=== PATIENT | male | born 1960 | race Hispanic/Latino ===

== ENCOUNTER 2019-01-14 13:21 | Emergency (ER) | payer SELFPAY ==
[~2019-01-14 13:21] MED LIST: ISOVUE-370 76%-LOCM 1 ML ONE
[2019-01-14] MEDS ORDERED: Acetaminophen 500 MG TAB ONE (13:44)
[2019-01-14 13:58] LABS: #Lymphocytes 1.7 thou/uL (1.20-3.40); #Monocytes 0.9 thou/uL (0.11-0.59); %Basophils 0.3 % (0.0-1.0); %Eosinophils 0.2 % (0.0-10.0); %Lymphocytes 11.8 % (21.0-51.0); %Monocytes 5.9 % (0.0-10.0); %Neutrophils 81.9 % (42.0-75.0); Hemoglobin 15.5 g/dL (14.0-18.0); Mean Corpuscular HGB CONC 32.6 g/dL (32.0-36.0); Mean Corpuscular Hemoglobin 27.7 pg (27.0-31.0); Mean Platelet Volume 8.9 fL (7.4-10.4); Platelet Count 192 thou/uL (130-400); RBC Distribution Width 12.9 % (11.5-14.5); White Blood Cell (WBC) Count 14.7 thou/uL (4.8-10.8)
[2019-01-14] MEDS ORDERED: Rocuronium Bromide 50 MG/5 ML VIAL ONE (14:24)
[2019-01-14 14:25] LABS: ALT (SGPT) 16 U/L (8-55); AST (SGOT) 22 U/L (5-34); Albumin 3.9 g/dL (3.5-5.0); Alkaline Phosphatase 132 U/L (40-150); Anion Gap 15 mmol/L (10-20); BUN (Urea Nitrogen) 23 mg/dL (8.4-25.7); Bilirubin, Total 1.3 mg/dL (0.2-1.2); Calc. Creatinine Clearance 0 mL/min (70-130); Calcium 9.6 mg/dL (7.8-10.44); Carbon Dioxide 23 mmol/L (22-29); Chloride 94 mmol/L (98-107); Estimated GFR-MDRD 39; Globulin 3.7 g/dL (2.4-3.5); Glucose 194 mg/dL (70-105); Potassium 3.9 mmol/L (3.5-5.1); Protein, Total 7.6 g/dL (6.0-8.3); Sodium 128 mmol/L (136-145)
[2019-01-14] MEDS ORDERED: Ketamine 50 MG/ML (10ML VIAL) ONE (14:25)
[2019-01-14 14:43] LABS: CKMB 3.6 ng/mL (0-6.6)
[2019-01-14] MEDS ORDERED: niCARdipine 20MG In NaCl 0 MG/0 ML BAG ONE (14:47)
[2019-01-14 14:57] LABS: INR-International Normal Ratio 1.1; PTT 29.9 SEC (22.9-36.1); Prothrombin Time 14.3 SEC (12.0-14.7)
[2019-01-14 15:25] LABS: Actual Bicarbonate (HCO3a) 26.3 mEq/L (22-28); Analyzer IN Cardio ER; Base Excess (BEa) -0.9 mEq/L (-2.0 to +3.0); Carboxyhemoglobin (COHb) 0.7 gm% (0.0-3.0); Hemoglobin (Hb) 17.9 g/dL (14.0-18.0); O2 Tension (PaO2) 229.9 mmHg (80.0-100.0); Potassium - ABG Lab 3.71 mmol/L (3.70-5.30); pH, Arterial 7.32 (7.35-7.45)
[2019-01-14 15:26] LABS: Puncture Site LRA
--- NOTE | 2019-01-14 15:31 | RAD ---
SINGLE VIEW OF THE CHEST: 01/14/19 COMPARISON: None. HISTORY: Hypertension and headache. FINDINGS: Single view of the chest shows an enlarged cardiomediastinal silhouette. Bilateral pulmonary vascular enlargement is seen. There is no evidence of consolidation, mass, or pleural effusion. IMPRESSION: No evidence of acute cardiopulmonary disease. POS: TPC
--- NOTE | 2019-01-14 15:41 | CT ---
CT BRAIN NONCONTRAST: DATE: 01/14/2019. TIME: 2:07 p.m. HISTORY: A 58-year-old male with posttraumatic headache. COMPARISON: None available. FINDINGS: There is an approximately 2 x 1 cm acute intraaxial hematoma near the junction between the right erica etal and temporal lobes. It is surrounded by low-attenuation rim that represents a mild degree of va sogenic edema. The differential diagnosis for the acute intraaxial hemorrhage includes hypertensive hemorrhage, neoplasm, and trauma. No mass effect, midline shift, or extraaxial fluid collection. No evidence of subarachnoid, subdural , or epidural hemorrhage. No obstructive hydrocephalus. There are diffuse, moderate to severe chronic ischemic white matter changes of the cerebrum bilateral ly. There are small old lacunar infarctions involving the periventricular white matter and caudate nuclei , at least 2 on the right and 1 on the left. No acute calvarial fracture. Dr. Wynn discussed the intracranial hemorrhage by [facility] 2:14 p.m. on 01/14/2019. IMPRESSION: 1. A 1 x 2 cm acute right parietotemporal intraaxial hematoma centered at the yeung-white junction. 2. 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 3. No mass effect. 4. Moderate to severe chronic ischemic white matter changes (small vessel disease). JN Shayne POS: CET
--- NOTE | 2019-01-14 15:59 | RAD ---
SINGLE VIEW CHEST: COMPARISON: 01/14/2019 at 2:01 p.m. HISTORY: Hypertension and headache. FINDINGS: A single view of the chest shows an enlarged but stable cardiomediastinal silhouette. An endotrachea l tube is seen with its tip between the clavicles. There is no evidence of consolidation, mass, or p leural effusion. IMPRESSION: Appropriate position of endotracheal tube. POS: TPC
--- NOTE | 2019-01-14 16:03 | CT ---
BRAIN CT WITHOUT IV CONTRAST: HISTORY: Headache, worsening mental status. COMPARISON: 01/14/2019, 2:05 p.m. study. FINDINGS: Stable right temporoparietal intracranial intracerebral hemorrhage. No evidence for new hemorrhage. This appears stable in size from the prior study. There is some fluid in the posterior nasopharynx and minimal mucosal changes in the right maxillary sinus. IMPRESSION: Stable intracerebral hemorrhage. Stable atrophy and chronic white matter ischemic change. No signif icant new process. POS: TPC
[2019-01-14 16:04] LABS: Bilirubin Negative (Negative); Blood, Urine 3+ (Negative); Clarity Clear (Clear); Glucose, Urine (Dipstick) 50 mg/dL (Negative); Leukocyte Negative Leu/uL (Negative); Nitrite Negative (Negative); Protein, Urine (Dipstick) 600 mg/dL (Neg-Trace); RBC/HPF 0-3 HPF (0-3); Squamous Epithelial None Seen HPF (0-3)
[2019-01-14] MEDS ORDERED: Propofol 1,000 MG/100 ML VIAL IV ONE (16:05)
[2019-01-14] MEDS ORDERED: niCARdipine 20MG In NaCl 20 MG/200 ML BAG ONE (16:16)
--- NOTE | 2019-01-14 16:16 | CT ---
CT ANGIOGRAM HEAD WITH 3D RENDERING: Date: 01/14/19 HISTORY: Headache, trauma, right intracerebral hemorrhage. FINDINGS: Stable right temporoparietal intra-axial intracerebral hemorrhage. No evidence for an aneurysm. No ev idence for an arteriovenous malformation. No overt major branch occlusion. There are some atheroscler otic calcific changes of the intracranial internal carotid arteries. Vertebrobasilar arteries are unr emarkable. IMPRESSION: Stable right temporoparietal intra-axial hemorrhage. No evidence of an aneurysm or arteriovenous malf ormation. No evidence of major branch occlusion. Fluid in the posterior nasopharynx region. Consider nonemergent follow-up MRI for further assessment. POS: TPC
[2019-01-14 16:31] LABS: Bacteria/HPF None Seen HPF (None Seen); Mucous/LPF None Seen LPF (<2+)
[2019-01-14 16:36] LABS: Actual Bicarbonate (HCO3a) 26.3 mEq/L (22-28); Base Excess (BEa) -0.9 mEq/L (-2.0 to +3.0); Hemoglobin (Hb) 17.9 g/dL (14.0-18.0); O2 Tension (PaO2) 229.9 mmHg (80.0-100.0); pH, Arterial 7.32 (7.35-7.45)
[2019-01-14 16:37] LABS: Carboxyhemoglobin (COHb) 0.7 gm% (0.0-3.0)
[2019-01-14 16:38] LABS: Analyzer IN Cardio ER; Potassium - ABG Lab 3.71 mmol/L (3.70-5.30); Puncture Site LRA
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
--- NOTE | 2019-01-15 17:01 | EKG ---
Test Reason : Blood Pressure : / mmHG Vent. Rate : 085 BPM Atrial Rate : 085 BPM P-R Int : 162 ms QRS Dur : 092 ms QT Int : 412 ms P-R-T Axes : 053 -38 165 degrees QTc Int : 490 ms Normal sinus rhythm Possible Left atrial enlargement Left axis deviation Left ventricular hypertrophy Cannot rule out Septal infarct , age undetermined Abnormal ECG Confirmed by ROGELIO PETERSEN, MEJIA ([id number]), editor sound JUDITH MCCORMACK ([id number]) on 01/15/2019 5:00:47 PM Referred By: Confirmed By:MEJIA MERCADO MD
== END 2019-01-14 16:12 | disposition short-term general hospital (02) ==
LOC: ERS 13:21
DX: I61.9 Nontraumatic intracerebral hemorrhage, unspecified (principal); I10 Essential (primary) hypertension; R41.82 Altered mental status, unspecified
CPT/HCPCS: 31500; 36415; 51702; 70450; 70496; 71045; 80053; 80307; 81003; 81015; 82553; 82805; 83880; 84484; 85025; 85610; 85730; 93005; 94002; 96365; 96374; J2704; Q9966

== ENCOUNTER 2020-04-26 14:11 | Inpatient (IN) | payer OTHER, SELFPAY ==
--- NOTE | 2020-04-26 14:54 | RAD ---
EXAM: 3 views of the right foot HISTORY: Foot pain and swelling since yesterday COMPARISON: None FINDINGS: 3 views of the right foot shows no evidence of acute fracture or dislocation. Moderate dors al soft tissue swelling is seen. Mild to moderate degenerative changes are seen in the midfoot. IMPRESSION: Midfoot degenerative changes without evidence of acute osseous abnormality.
[2020-04-26] MEDS ORDERED: Vancomycin 1 GM/200 ML BAG ONE (18:08)
[2020-04-26 18:18] LABS: #Basophils 0.1 thou/uL (0.0-0.2); #Eosinphils 0.2 thou/uL (0.0-0.7); #Lymphocytes 1.7 thou/uL (1.20-3.40); #Monocytes 1.2 thou/uL (0.11-0.59); #Neutrophils 10.8 thou/uL (1.40-6.50); %Basophils 0.4 % (0.0-1.0); %Eosinophils 1.3 % (0.0-10.0); %Lymphocytes 12.2 % (21.0-51.0); %Monocytes 8.3 % (0.0-10.0); %Neutrophils 77.7 % (42.0-75.0); Hemoglobin 16.9 g/dL (14.0-18.0); Mean Corpuscular Hemoglobin 28.6 pg (27.0-31.0); Mean Corpuscular Volume 86.7 fL (78.0-98.0); Mean Platelet Volume 10.2 fL (7.4-10.4); Platelet Count 171 thou/uL (130-400); RBC Distribution Width 12.7 % (11.5-14.5); Red Blood Cell (RBC) Count 5.91 mill/uL (4.70-6.10); White Blood Cell (WBC) Count 13.8 thou/uL (4.8-10.8)
[2020-04-26] MEDS ORDERED: Piperacillin/Tazobactam 4.5 GM VIAL ONE (18:41)
[2020-04-26 18:56] LABS: ALT (SGPT) 20 U/L (8-55); AST (SGOT) 31 U/L (5-34); Albumin 3.9 g/dL (3.5-5.0); Alkaline Phosphatase 128 U/L (40-110); Anion Gap 17 mmol/L (10-20); BUN (Urea Nitrogen) 23 mg/dL (8.4-25.7); Bilirubin, Total 0.8 mg/dL (0.2-1.2); Calc. Creatinine Clearance 0 mL/min (70-130); Calcium 9.7 mg/dL (7.8-10.44); Carbon Dioxide 23 mmol/L (22-29); Chloride 100 mmol/L (98-107); Estimated GFR-MDRD 43; Globulin 4.7 g/dL (2.4-3.5); Glucose 157 mg/dL (70-105); Potassium 4.9 mmol/L (3.5-5.1); Protein, Total 8.6 g/dL (6.0-8.3); Sodium 135 mmol/L (136-145)
[2020-04-26 19:41] LABS: Bacteria/HPF None Seen HPF (None Seen); Bilirubin Negative (Negative); Blood, Urine 1+ (Negative); Clarity Clear (Clear); Glucose, Urine (Dipstick) 50 mg/dL (Negative); Ketone, Urine Negative (Negative); Leukocyte Negative Leu/uL (Negative); Nitrite Negative (Negative); Protein, Urine (Dipstick) 300 mg/dL (Neg-Trace); RBC/HPF 0-3 HPF (0-3); Specific Gravity, Urine 1.013 (1.002-1.036); Squamous Epithelial 0-3 HPF (0-3); Urobilinogen Normal mg/dL (Less than 2); WBC/HPF 0-3 HPF (0-3)
[2020-04-26] MEDS ORDERED: Acetaminophen 325 MG TAB PO PRN (20:16)
[2020-04-26] MEDS ORDERED: Amlodipine 5 MG TAB ONE (20:55)
[2020-04-26] MEDS ORDERED: Vancomycin HCl 1 GM in Sodium Chloride 0.9% 250 ML 300 ML IVPB SCH (21:00)
--- NOTE | 2020-04-26 22:21 | PDOC.EVN ---
Event Note - Event Note Event Note: [id number] HP
[2020-04-26] MEDS ORDERED: Dextrose 5% in Water 1,000 ML IV PRN (22:23)
[2020-04-26] MEDS ORDERED: Dextrose 50% Abboject 50 ML SYRINGE SLOW IVP PRN (22:23)
[2020-04-26] MEDS ORDERED: HumaLOG 300 UNITS/3 ML VIAL SC PRN ×2 (22:23)
[2020-04-26] MEDS ORDERED: Cefepime 2 GM in Sodium Chloride 0.9% 100 ML IVPB SCH (22:30)
[2020-04-27 00:03] VITALS: BMI 29.7
[2020-04-27 00:16] LABS: Lactic Acid 2.1 mmol/L (0.5-2.2)
[2020-04-27] MEDS ORDERED: Heparin 5,000 UNITS/ML VIAL SC SCH (00:30)
[2020-04-27] MEDS: Heparin 5,000 UNITS/ML VIAL SC SCH ×4 (00:34→21:55)
[2020-04-27] MEDS: Sodium Chloride 0.9% 1,000 ML IV SCH ×2 (00:34→06:02)
[2020-04-27] MEDS: cloNIDine 0.1 MG TAB PO PRN ×3 (00:41→18:10)
[2020-04-27] MEDS ORDERED: Cefepime 2 GM in Sodium Chloride 0.9% 100 ML IVPB SCH (01:00)
--- NOTE | 2020-04-27 01:09 | HP ---
CHIEF COMPLAINT: With right leg swelling and pain. HISTORY OF PRESENT ILLNESS: Mr. Eugene is a 60-year-old male with history of diabetes mellitus type 2, presented to the emergency room with right lower extremity pain and swelling. Patient had subjective fever at home. Patient denies recent trauma, recent sea water/fresh water swimming. This has never happened before. No recent travel. Workup in the emergency room, patient was found to have right lower extremity with edema to the proximal ankle with significant warmth. Patient's lactic acid initially was 2.9, WBC count elevated at 13.8. X-ray of the foot showed midfoot degenerative changes without evidence of acute osseous abnormality. Septic workup done in the ED. Patient was on IV antibiotics. Patient is being admitted to hospital for further management. PAST MEDICAL HISTORY: 1. Diabetes type 2. 2. Hypertension. PAST SURGICAL HISTORY: Reviewed, not pertinent. FAMILY HISTORY: Noncontributory and noncontributory. SOCIAL HISTORY: Denies smoking, alcohol drinking, or drug abuse. ALLERGIES: NO KNOWN ALLERGIES. HOME MEDICATIONS: Please see home medication reconciliation form for updated medications. REVIEW OF SYSTEMS: Review of 14 systems negative, except for what is mentioned in the history of present illness. PHYSICAL EXAMINATION: GENERAL: Patient is awake, alert, in moderate distress. VITAL SIGNS: Blood pressure 190/100, pulse is 108, respiratory rate is 17, temperature is 100.7, oxygen saturation is 98% on room air. HEAD AND NECK: Normocephalic, atraumatic. NECK: Supple. No JVD. CHEST: Fair bilateral air entry. HEART: S1, S2. Regular. ABDOMEN: Soft, nontender. Bowel sounds present. NEUROLOGIC: Awake, alert, and oriented x3. PSYCH: Normal mood. EXTREMITIES: Right leg is swollen, tender, erythematous, warm proximal to the ankle. LABORATORY DATA: As mentioned above in the history of present illness. IMAGING STUDIES: X-ray of the foot as mentioned above in the history of present illness. ASSESSMENT: 1. Sepsis. 2. Cellulitis of the right lower extremity. 3. Acute kidney injury? 4. Diabetes type 2. 5. Hypertension?. Patient has elevated blood pressure. Patient does not take medications for hypertension? PLAN: 1. Admit. 2. Septic workup in the ED. 3. IV antibiotics. Continue with IV cefepime and vancomycin. 4. Monitor and control blood glucose. 5. Monitor and control blood pressure. 6. IV fluids. 7. Reconcile home medications. 8. DVT prophylaxis as appropriate. 9. Expected length of stay, 2 midnights or more. Job ID: [id number]
[2020-04-27 06:12] LABS: #Eosinphils 0.3 thou/uL (0.0-0.7); #Lymphocytes 1.4 thou/uL (1.20-3.40); #Monocytes 0.9 thou/uL (0.11-0.59); #Neutrophils 7.8 thou/uL (1.40-6.50); %Basophils 0.4 % (0.0-1.0); %Eosinophils 2.9 % (0.0-10.0); %Lymphocytes 13.8 % (21.0-51.0); %Monocytes 8.9 % (0.0-10.0); %Neutrophils 73.9 % (42.0-75.0); Hemoglobin 14.4 g/dL (14.0-18.0); Mean Corpuscular HGB CONC 32.1 g/dL (32.0-36.0); Mean Corpuscular Hemoglobin 28.2 pg (27.0-31.0); Mean Corpuscular Volume 87.8 fL (78.0-98.0); Mean Platelet Volume 9.5 fL (7.4-10.4); Platelet Count 134 thou/uL (130-400); RBC Distribution Width 12.6 % (11.5-14.5); Red Blood Cell (RBC) Count 5.12 mill/uL (4.70-6.10); White Blood Cell (WBC) Count 10.5 thou/uL (4.8-10.8)
[2020-04-27 06:28] LABS: Anion Gap 10 mmol/L (10-20); BUN (Urea Nitrogen) 19 mg/dL (8.4-25.7); Calc. Creatinine Clearance 72 mL/min (70-130); Calcium 8.4 mg/dL (7.8-10.44); Carbon Dioxide 23 mmol/L (22-29); Chloride 105 mmol/L (98-107); Estimated GFR-MDRD 55; Glucose 130 mg/dL (70-105); Potassium 3.8 mmol/L (3.5-5.1); Sodium 134 mmol/L (136-145)
[2020-04-27 08:02] LABS: Glucose 131 mg/dL (70-105)
[2020-04-27] MEDS ORDERED: Vancomycin HCl 1.25 GM in Sodium Chloride 0.9% 250 ML 250 ML IVPB SCH (09:00)
[2020-04-27] MEDS: Hydrochlorothiazide 25 MG TAB PO SCH (09:53)
[2020-04-27 11:03] LABS: SARS-CoV-2 MS2 Positive; SARS-CoV-2 N Gene Negative; SARS-CoV-2 S Gene Negative; SARS-CoV-2 by NAA Not Detected (NotDetected); SARS-CoV-2 orf1ab Negative
[2020-04-27 11:44] LABS: Glucose 149 mg/dL (70-105); Uric Acid 8.7 mg/dL (3.5-7.2)
--- NOTE | 2020-04-27 11:57 | ULT ---
Exam:Rightlower extremity venous ultrasound with Doppler HISTORY: Rightlower extremity swelling COMPARISON: None TECHNIQUE: Grayscale, color flow, Doppler imaging and spectral wave muscle performed right lower extr emity venous system FINDINGS: There is compressibility, presence of flow and augmentation in the common femoral vein, femoral vein and popliteal vein. There is flow in the posterior tibial vein. There is flow in the greater saphenous vein and profunda femoral vein IMPRESSION: No thrombus in the right lower extremity deep venous system.
[2020-04-27] MEDS: metFORMIN 500 MG TAB PO SCH ×2 (12:19→16:06)
[2020-04-27] MEDS: HYDROcodone/Acetaminophen 5/325 mg Tablet PO PRN ×2 (12:20→16:05)
[2020-04-27 17:19] LABS: Glucose 131 mg/dL (70-105)
[2020-04-27] MEDS: Morphine 4 MG/ML VIAL SLOW IVP PRN ×2 (18:10→22:52)
--- NOTE | 2020-04-27 19:00 | PDOC.HOSPP ---
- Subjective Encounter Date: 04/27/20 Encounter Time: 11:15 Subjective: pt up in bed complains of pain to his left ankle. - Objective Vital Signs & Weight: Vital Signs (12 hours) Temp Pulse Resp BP BP Pulse Ox 04/27/20 15:59 98.3 F 99 18 158/111 H 95 04/27/20 13:51 95 167/87 H 04/27/20 08:46 141/96 H 04/27/20 07:27 97.2 F L 84 20 141/96 H 98 Weight Weight 189 lb 11.2 oz Result Diagrams: 04/27/20 05:27 04/27/20 16:55 Hospitalist ROS - Review of Systems Cardiovascular: denies: chest pain, palpitations, orthopnea, paroxysmal noc. dyspnea, edema, light headedness, other Gastrointestinal: denies: nausea, vomiting, abdominal pain, diarrhea, constipation, melena, hematochezia, other Genitourinary: denies: dysuria, frequency, incontinence, hematuria, retention, other Musculoskeletal: reports: other (left ankle pain) - Medication Medications: Active Medications Generic Name Dose Route Start Last Admin Trade Name Freq PRN Reason Stop Dose Admin Hydrocodone Bitart/Acetaminophen 1 tab 04/26/20 20:16 04/27/20 16:05 Hydrocodone/Acetaminophen 5/325 Mg Tablet PO 1 tab Q4H PRN Administration Moderate Pain (4-6) Clonidine 0.1 mg 04/26/20 22:21 04/27/20 18:10 Clonidine 0.1 Mg Tab PO 0.1 mg Q4H PRN Administration sbp> 180 or dbp>90 Heparin Sodium (Porcine) 5,000 units 04/26/20 21:00 04/27/20 15:59 Heparin 5,000 Units/Ml Vial SC Not Given TID SNOW Hydrochlorothiazide 12.5 mg 04/27/20 09:00 04/27/20 09:53 Hydrochlorothiazide 25 Mg Tab PO 12.5 mg DAILY SNOW Administration Vancomycin HCl 1.25 gm/ Sodium 250 mls @ 166.667 mls/hr 04/27/20 09:00 04/27/20 09:49 Chloride IVPB 250 mls DAILY SNOW Administration Cefepime HCl 2 gm/ Sodium 100 mls @ 200 mls/hr 04/27/20 01:00 04/27/20 00:44 Chloride IVPB 100 mls 0100 SNOW Administration Metformin HCl 1,000 mg 04/27/20 12:00 04/27/20 16:06 Metformin 500 Mg Tab PO 1,000 mg TID-WM SNOW Administration Morphine Sulfate 4 mg 04/27/20 16:33 04/27/20 18:10 Morphine 4 Mg/Ml Vial SLOW IVP 4 mg Q4H PRN Administration Pain - Exam Heart: negative: RRR, no murmur, no gallops, no rubs, normal peripheral pulses, irregular, diminshed peripheral pulses, murmur present, II/IV, III/IV Respiratory: negative: CTAB, no wheezes, no rales, no ronchi, normal chest expansion, no tachypnea, normal percussion, rales, rhonchi, tachypneic, wheezes Gastrointestinal: negative: soft, non-tender, non-distended, normal bowel sounds, no palpable masses, no hepatomegaly, no splenomegaly, no bruit, no guarding, no rigidity, tender to palpation, distended, diminished bowl sounds, voluntary guarding Extremities: 1+ LE edema Hosp A/P (1) Left ankle pain Code(s): M25.572 - PAIN IN LEFT ANKLE AND JOINTS OF LEFT FOOT Status: Acute (2) HTN (hypertension) Code(s): I10 - ESSENTIAL (PRIMARY) HYPERTENSION Status: Acute (3) Obesity Code(s): E66.9 - OBESITY, UNSPECIFIED Status: Acute (4) Cellulitis Code(s): L03.90 - CELLULITIS, UNSPECIFIED Status: Acute (5) Lactic acidosis Code(s): E87.2 - ACIDOSIS Status: Acute - Plan pt's left foot pain and mild erythema appears more inflammatory than cellulitis. will start pt on colchicine and will deescalate his abx to ceftriaxone. will check a hbg alc. venous dopplers are negative.
[2020-04-27] MEDS: cefTRIAXone\\ROCEPHIN 1 GM in Sodium Chloride 0.9% 100 ML IVPB SCH (21:32)
[2020-04-27 21:35] LABS: Glucose 179 mg/dL (70-105)
[2020-04-27] MEDS: Colchicine 0.6 MG TAB PO SCH (21:51)
[2020-04-28] MEDS: cloNIDine 0.1 MG TAB PO PRN (00:24)
[2020-04-28] MEDS ORDERED: NIFEdipine XL 30 MG TAB PO SCH (03:00)
[2020-04-28 06:10] LABS: ALT (SGPT) 15 U/L (8-55); AST (SGOT) 18 U/L (5-34); Albumin 3.1 g/dL (3.5-5.0); Alkaline Phosphatase 112 U/L (40-110); Anion Gap 11 mmol/L (10-20); BUN (Urea Nitrogen) 22 mg/dL (8.4-25.7); Bilirubin, Total 0.6 mg/dL (0.2-1.2); Calc. Creatinine Clearance 67 mL/min (70-130); Calcium 8.7 mg/dL (7.8-10.44); Carbon Dioxide 24 mmol/L (22-29); Chloride 101 mmol/L (98-107); Estimated GFR-MDRD 50; Globulin 3.4 g/dL (2.4-3.5); Glucose 141 mg/dL (70-105); Potassium 3.8 mmol/L (3.5-5.1); Protein, Total 6.5 g/dL (6.0-8.3); Sodium 132 mmol/L (136-145)
[2020-04-28] MEDS ORDERED: hydrALAZINE 20 MG/ML VIAL SLOW IVP PRN (08:11)
[2020-04-28 08:16] LABS: Glucose 114 mg/dL (70-105)
[2020-04-28] MEDS ORDERED: Colchicine 0.6 MG TAB PO SCH (09:00)
[2020-04-28] MEDS: Hydrochlorothiazide 25 MG TAB PO SCH (09:30)
[2020-04-28] MEDS: metFORMIN 500 MG TAB PO SCH ×3 (09:30→17:39)
[2020-04-28] MEDS: Heparin 5,000 UNITS/ML VIAL SC SCH ×3 (09:32→21:58)
[2020-04-28] MEDS: Colchicine 0.6 MG TAB PO SCH ×2 (09:32→20:52)
[2020-04-28] MEDS: Lisinopril 20 MG TAB PO SCH (09:32)
[2020-04-28 12:39] LABS: Glucose 142 mg/dL (70-105)
--- NOTE | 2020-04-28 17:47 | PDOC.HOSPP ---
- Subjective Encounter Date: 04/28/20 Encounter Time: 17:45 Subjective: Mr. Eugene was seen today in follow-up of pain in the right ankle. He says his symptoms have improved. No new complaints. - Objective Vital Signs & Weight: Vital Signs (12 hours) Temp Pulse Resp BP BP Pulse Ox 04/28/20 13:17 97.9 F 88 18 133/86 97 04/28/20 09:32 145/90 H 04/28/20 09:00 96 04/28/20 08:16 98.3 F 87 18 145/90 H 96 04/28/20 06:06 154/108 H Weight Weight 189 lb 11.2 oz I&O: 04/27/20 04/28/20 04/29/20 06:59 06:59 06:59 Intake Total 1210 Balance 1210 Result Diagrams: 04/27/20 05:27 04/28/20 11:40 Additional Labs: Accuchecks 04/28/20 04/28/20 04/28/20 16:41 11:50 05:21 POC Glucose 115 H 152 H 158 H 04/27/20 04/27/20 12:10 04:37 POC Glucose 115 H 123 H Hospitalist ROS - Medication Medications: Active Medications Generic Name Dose Route Start Last Admin Trade Name Freq PRN Reason Stop Dose Admin Hydrocodone Bitart/Acetaminophen 1 tab 04/26/20 20:16 04/27/20 16:05 Hydrocodone/Acetaminophen 5/325 Mg Tablet PO 1 tab Q4H PRN Administration Moderate Pain (4-6) Clonidine 0.1 mg 04/26/20 22:21 04/28/20 00:24 Clonidine 0.1 Mg Tab PO 0.1 mg Q4H PRN Administration sbp> 180 or dbp>90 Colchicine 0.6 mg 04/27/20 21:00 04/28/20 09:32 Colchicine 0.6 Mg Tab PO 04/29/20 09:01 0.6 mg BID SNOW Administration Heparin Sodium (Porcine) 5,000 units 04/26/20 21:00 04/28/20 16:00 Heparin 5,000 Units/Ml Vial SC 5,000 units TID SNOW Administration Hydrochlorothiazide 12.5 mg 04/27/20 09:00 04/28/20 09:30 Hydrochlorothiazide 25 Mg Tab PO 12.5 mg DAILY SNOW Administration Ceftriaxone Sodium 1 gm/ 100 mls @ 200 mls/hr 04/27/20 20:00 04/27/20 21:32 Sodium Chloride IVPB 100 mls Q24HR SNOW Administration Lisinopril 20 mg 04/28/20 09:00 04/28/20 09:32 Lisinopril 20 Mg Tab PO 20 mg DAILY SNOW Administration Metformin HCl 1,000 mg 04/27/20 12:00 04/28/20 17:39 Metformin 500 Mg Tab PO 1,000 mg TID-WM SNOW Administration Morphine Sulfate 4 mg 04/27/20 16:33 04/27/20 22:52 Morphine 4 Mg/Ml Vial SLOW IVP 4 mg Q4H PRN Administration Pain Sodium Chloride 10 ml 04/28/20 09:00 04/28/20 09:32 Flush - Normal Saline 10 Ml Syringe IVF 10 ml Q12HR SNOW Administration - Exam Eye: PERRL, anicteric sclera Heart: RRR, no murmur, no gallops, no rubs, normal peripheral pulses Respiratory: CTAB, no wheezes, no rales, no ronchi, normal chest expansion Gastrointestinal: soft, non-tender, non-distended, normal bowel sounds, no palpable masses, no hepatomegaly Extremities: 1+ LE edema (+ mild swelling in the right ankle, no warmth, no redness) Hosp A/P (1) Left ankle pain Code(s): M25.572 - PAIN IN LEFT ANKLE AND JOINTS OF LEFT FOOT Status: Acute (2) Diabetes mellitus type 2 in nonobese Code(s): E11.9 - TYPE 2 DIABETES MELLITUS WITHOUT COMPLICATIONS Status: Chronic (3) HTN (hypertension) Code(s): I10 - ESSENTIAL (PRIMARY) HYPERTENSION Status: Chronic - Plan * Cellulitis of the leg and foot, vs. Goat, Vs. Pseudo gout * He is stable for discharge home on oral antibiotics, as well as a carlos of Cholchicine * He will need close follow-up, and consider starting Allopurinol in the outpatient setting * He says he has trouble affording medications- will therfore consult Case- management * Home once seen by CM.
[2020-04-28 18:31] LABS: Glucose 125 mg/dL (70-105)
[2020-04-28] MEDS: cefTRIAXone\\ROCEPHIN 1 GM in Sodium Chloride 0.9% 100 ML IVPB SCH (20:53)
[2020-04-28 21:33] LABS: Glucose 122 mg/dL (70-105)
--- NOTE | 2020-04-28 23:11 | DIS ---
DATE OF ADMISSION: 04/27/2020 DATE OF DISCHARGE: 04/28/2020 PRIMARY CARE PHYSICIAN: The patient currently does not have a primary care physician. DISCHARGE DISPOSITION: Home. DISCHARGE DIAGNOSES: 1. Pain in the right ankle. 2. Probable gout versus cellulitis versus pseudogout. 3. Hypertension. 4. Diabetes mellitus type 2. DISCHARGE MEDICATIONS: 1. Colchicine taper 0.6 mg p.o. b.i.d. for one week followed by a 0.6 mg daily. 2. Augmentin 875 mg p.o. b.i.d. for seven days. 3. Hydrochlorothiazide 12.5 mg p.o. daily. 4. Metformin 1000 mg p.o. t.i.d. 5. Captopril 25 mg p.o. q.8. IMAGING DONE DURING THE HOSPITAL STAY: The patient had an x-ray of the foot, which has essentially demonstrated some mild DJD, but no osseous abnormalities. The patient had a lower extremity venous Doppler, which was negative for DVT. It was also noted that the patient's uric acid level was slightly elevated at 8.7. CODE STATUS: Full code. ALLERGIES: NO KNOWN DRUG ALLERGIES. HOSPITAL COURSE: Mr. Valorie Andrews is a 60-year-old gentleman, who presented to the emergency room complaining of spontaneous or unprovoked swelling in the right lower extremity with severe pain. There is concern that this could be a cellulitis and he was initially started on antibiotics. Lower extremity venous Doppler was also done to rule out DVT. This was negative. The patient had some characteristics, which looked more like gout since this was unprovoked. His white blood cell count was only moderately elevated and he was started on colchicine in addition to the antibiotics and he was instructed that he would need to follow up with the primary care physician, in that he may need to be placed on allopurinol after the acute flare. Also, antibiotics will be continued due to the uncertain nature of the swelling and pain. He also stating that he was having difficulties affording his medications and therefore Case Management consult will be obtained as well. Discharge instructions and the encounter were done through the [facility]. Job ID: [id number]
[2020-04-29 07:47] LABS: Glucose 108 mg/dL (70-105)
[2020-04-29] MEDS: Hydrochlorothiazide 25 MG TAB PO SCH (09:35)
[2020-04-29] MEDS: Heparin 5,000 UNITS/ML VIAL SC SCH (09:36)
[2020-04-29] MEDS: Lisinopril 20 MG TAB PO SCH (09:37)
[2020-04-29] MEDS: Colchicine 0.6 MG TAB PO SCH (09:37)
[2020-04-29] MEDS: metFORMIN 500 MG TAB PO SCH ×2 (09:37→13:20)
[2020-04-29] MEDS: HYDROcodone/Acetaminophen 5/325 mg Tablet PO PRN (09:43)
--- NOTE | 2020-04-29 10:57 | PDOC.HOSPP ---
- Subjective Encounter Date: 04/29/20 Encounter Time: 10:54 Subjective: Mr. Valorie Andrews was seen today in follow-up of ankle swelling. The pain has almost completely gone. No new complaints. - Objective Vital Signs & Weight: Vital Signs (12 hours) Temp Pulse Resp BP BP Pulse Ox 04/29/20 09:37 184/124 H 04/29/20 08:30 97.5 F L 86 16 176/112 H 95 Weight Weight 189 lb 11.2 oz I&O: 04/28/20 04/29/20 04/30/20 06:59 06:59 06:59 Intake Total 1210 692 Balance 1210 692 Result Diagrams: 04/27/20 05:27 04/29/20 07:25 Additional Labs: Accuchecks 04/29/20 04/28/20 04/28/20 04:15 20:57 16:41 POC Glucose 105 H 116 H 115 H 04/28/20 04/27/20 04/27/20 11:50 12:10 04:37 POC Glucose 152 H 115 H 123 H Hospitalist ROS - Medication Medications: Active Medications Generic Name Dose Route Start Last Admin Trade Name Freq PRN Reason Stop Dose Admin Hydrocodone Bitart/Acetaminophen 1 tab 04/26/20 20:16 04/29/20 09:43 Hydrocodone/Acetaminophen 5/325 Mg Tablet PO 1 tab Q4H PRN Administration Moderate Pain (4-6) Clonidine 0.1 mg 04/26/20 22:21 04/28/20 00:24 Clonidine 0.1 Mg Tab PO 0.1 mg Q4H PRN Administration sbp> 180 or dbp>90 Heparin Sodium (Porcine) 5,000 units 04/26/20 21:00 04/29/20 09:36 Heparin 5,000 Units/Ml Vial SC 5,000 units TID SNOW Administration Hydrochlorothiazide 12.5 mg 04/27/20 09:00 04/29/20 09:35 Hydrochlorothiazide 25 Mg Tab PO 12.5 mg DAILY SNOW Administration Ceftriaxone Sodium 1 gm/ 100 mls @ 200 mls/hr 04/27/20 20:00 04/28/20 20:53 Sodium Chloride IVPB 100 mls Q24HR SNOW Administration Lisinopril 20 mg 04/28/20 09:00 04/29/20 09:37 Lisinopril 20 Mg Tab PO 20 mg DAILY SNOW Administration Metformin HCl 1,000 mg 04/27/20 12:00 04/29/20 09:37 Metformin 500 Mg Tab PO 1,000 mg TID-WM SNOW Administration Morphine Sulfate 4 mg 04/27/20 16:33 04/27/20 22:52 Morphine 4 Mg/Ml Vial SLOW IVP 4 mg Q4H PRN Administration Pain Sodium Chloride 10 ml 04/28/20 09:00 04/29/20 09:39 Flush - Normal Saline 10 Ml Syringe IVF 10 ml Q12HR SNOW Administration - Exam Eye: PERRL Respiratory: CTAB, no wheezes, no rales, no ronchi, normal chest expansion, no tachypnea, normal percussion Gastrointestinal: soft, non-tender, non-distended, normal bowel sounds, no palpable masses, no hepatomegaly Extremities: no cyanosis (+ slight swelling on the lateral ankle, non tender) Hosp A/P (1) Left ankle pain Code(s): M25.572 - PAIN IN LEFT ANKLE AND JOINTS OF LEFT FOOT Status: Acute (2) Diabetes mellitus type 2 in nonobese Code(s): E11.9 - TYPE 2 DIABETES MELLITUS WITHOUT COMPLICATIONS Status: Chronic (3) HTN (hypertension) Code(s): I10 - ESSENTIAL (PRIMARY) HYPERTENSION Status: Chronic - Plan * Cellulitis of the leg and foot, vs. Goat, Vs. Pseudo gout * His discharge was held to see if there was any assistance available. * He was given a GoodRx card. * His blood pressure has been elevated- therfore Captopril will be changed to Lisinopril, and will add Clonidine as needed for blood pressure
[2020-04-29 11:43] LABS: Glucose 104 mg/dL (70-105)
[2020-04-29 12:37] VITALS: BP 162/72; TEMP 98.3
[2020-04-29 17:29] LABS: Glucose 106 mg/dL (70-105)
== END 2020-04-29 17:08 | disposition home or self-care (01) | DRG 872 ==
LOC: ERS 14:11 → ERHOLD 19:43 → T4-B 23:28 → OBSVTOIN 04-27 18:56
PROVIDERS: ADMIT Internal Medicine; ATTEND Internal Medicine
DX: A41.9 Sepsis, unspecified organism (principal); L03.115 Cellulitis of right lower limb; E87.2 Acidosis; E11.9 Type 2 diabetes mellitus without complications; I10 Essential (primary) hypertension; E66.9 Obesity, unspecified; Z68.29 Body mass index [BMI] 29.0-29.9, adult; M25.572 Pain in left ankle and joints of left foot; Z20.828 Contact with and (suspected) exposure to other viral communicable diseases; M10.9 Gout, unspecified
CPT/HCPCS: 36415; 36416; 80048; 80053; 81003; 81015; 82947; 83036; 83605; 84550; 85025; 86140; 87040; 87635; 96365; 96367; 96375; G0378; J0692; J0696; J1644; J2270; J2543; J3370; J3490; J7050; U0003